=== PATIENT | female | born 1990 | race Caucasian/White ===

== ENCOUNTER 2017-10-28 02:12 | Emergency (ER) | payer SELFPAY ==
[~2017-10-28] VITALS: Ht 165.1 cm; Wt 114.5 kg
[2017-10-28 02:19] VITALS: TEMP 99.3
[2017-10-28 02:49] LABS: COLLECTION METHOD CLEAN CATCH
[2017-10-28 02:55] LABS: BASO % 0.2 % (0.0-2.0); EOS % 0.4 % (0-4.0); GRAN # 6.6 (1.4-6.5); GRAN % 69.7 % (42.2-75.2); HEMATOCRIT 37.7 % (37.0-47.0); HEMOGLOBIN 12.3 g/dl (12.5-16.0); LYMPH # 2.3 (1.2-3.4); LYMPH % 24.5 % (20.0-51.0); MEAN CELL VOLUME 88 fl (80.0-100.0); MEAN CORPUSCULAR HEMOGLOBIN 29 pg (27.0-31.0); MEAN CORPUSCULAR HGB CONC 33 g/dl (33.0-37.0); MEAN PLATELET VOLUME 11.3 fl (7.4-10.4); MONO # 0.5 (0.1-0.6); MONO % 4.9 % (1.7-9.3); PLATELET COUNT 232 K/mm3 (130-400); RED BLOOD COUNT 4.27 M/mm3 (4.10-5.30); REDCELL DISTRIBUTION WIDTH-CV 13.2 % (11.5-14.5)
[2017-10-28 02:57] LABS: MUCOUS Present /lpf; PH 5 (5-8); URINE APPEARANCE Cloudy; URINE BACTERIA Many /hpf; URINE BILIRUBIN Negative (NEGATIVE); URINE BLOOD Negative (NEGATIVE); URINE COLOR Yellow; URINE GLUCOSE Negative (NEGATIVE); URINE KETONE Negative (NEGATIVE); URINE LEUKOCYTE ESTERASE Negative (NEGATIVE); URINE NITRATE Negative (NEGATIVE); URINE PROTEIN(semi-quant) Negative (NEGATIVE); URINE UROBILINOGEN Negative (NEGATIVE)
[2017-10-28 03:03] LABS: ALBUMIN 4.3 gm/dL (3.5-5.0); BILIRUBIN,TOTAL 0.4 mg/dL (0.0-1.0); C-REACTIVE PROTEIN 1.1 mg/dL (0.0-0.9); CREATININE, serum 0.51 mg/dL (0.52-1.25); POTASSIUM 3.3 mmol/L (3.4-5.0); TOTAL PROTEIN 8.2 gm/dL (6.4-8.2)
[2017-10-28] MEDS ORDERED: TENORETIC 50 501 TAB PO (03:05)
[2017-10-28] MEDS ORDERED: LIPITOR20 MG PO (03:05)
[2017-10-28] MEDS ORDERED: ZYLOPRIM 300MG300 MG PO (03:05)
[2017-10-28 03:29] LABS: COLLECTION METHOD CATHETER
[2017-10-28 03:33] VITALS: BP 136/89
[2017-10-28 03:36] LABS: MUCOUS Present /lpf; PH 5 (5-8); SQUAMOUS EPITHELIAL 0-2 /hpf; URINE APPEARANCE Hazy; URINE BACTERIA None Seen /hpf; URINE BILIRUBIN Negative (NEGATIVE); URINE BLOOD Negative (NEGATIVE); URINE COLOR Yellow; URINE GLUCOSE Negative (NEGATIVE); URINE KETONE Negative (NEGATIVE); URINE LEUKOCYTE ESTERASE Negative (NEGATIVE); URINE NITRATE Negative (NEGATIVE); URINE PROTEIN(semi-quant) Negative (NEGATIVE); URINE UROBILINOGEN Negative (NEGATIVE)
[2017-10-28] MEDS ORDERED: NORCO 325 MG-51 TAB PO (03:54)
[2017-10-28] MEDS ORDERED: ZOFRAN 4MG T4 MG/TAB PO (03:54)
[2017-10-28 04:10] VITALS: PULSE 65
== END 2017-10-28 04:11 | disposition home or self-care (01) ==
LOC: COL.ER 02:12
PROVIDERS: Nurse Practitioner
DX: R10.11 Right upper quadrant pain (principal); I10 Essential (primary) hypertension; E78.5 Hyperlipidemia, unspecified; M10.9 Gout, unspecified; Z90.49 Acquired absence of other specified parts of digestive tract; Z88.0 Allergy status to penicillin
CPT/HCPCS: J1170; J2405; J7030

== ENCOUNTER → 2017-11-12 | Outpatient (CLI) | payer SELFPAY ==
[~2017-11-12] MED LIST: LIPITOR20 MG PO; NORCO 325 MG-51 TAB PO; TENORETIC 50 501 TAB PO; ZOFRAN 4MG T4 MG/TAB PO; ZYLOPRIM 300MG300 MG PO
== END ==
LOC: COL.RAD 07:48
DX: K80.20 Calculus of gallbladder without cholecystitis without obstruction (principal); K76.0 Fatty (change of) liver, not elsewhere classified

== ENCOUNTER 2017-12-06 04:47 | Observation (INO) | payer SELFPAY ==
[~2017-12-06] VITALS: Ht 167.6 cm; Wt 124.1 kg
[2017-12-06] VITALS (10 sets, daily range): BP systolic 134–177; BP diastolic 76–91; PULSE 70–96; TEMP 98–98.7
[2017-12-06 05:18] LABS: COLLECTION METHOD CLEAN CATCH
[2017-12-06 05:21] LABS: BASO % 0.4 % (0.0-2.0); EOS # 0.1 (0.0-0.7); EOS % 1.2 % (0-4.0); GRAN # 3.9 (1.4-6.5); GRAN % 50.5 % (42.2-75.2); HEMATOCRIT 42.6 % (37.0-47.0); LYMPH # 3.2 (1.2-3.4); LYMPH % 41.1 % (20.0-51.0); MEAN CELL VOLUME 89 fl (80.0-100.0); MEAN CORPUSCULAR HEMOGLOBIN 29 pg (27.0-31.0); MEAN CORPUSCULAR HGB CONC 33 g/dl (33.0-37.0); MEAN PLATELET VOLUME 11.4 fl (7.4-10.4); MONO # 0.5 (0.1-0.6); MONO % 6.5 % (1.7-9.3); PLATELET COUNT 230 K/mm3 (130-400); RED BLOOD COUNT 4.78 M/mm3 (4.10-5.30); REDCELL DISTRIBUTION WIDTH-CV 13.2 % (11.5-14.5)
[2017-12-06 05:30] LABS: PH 5 (5-8); URINE APPEARANCE Clear; URINE BACTERIA Rare /hpf; URINE BILIRUBIN Negative (NEGATIVE); URINE BLOOD 1+ (NEGATIVE); URINE COLOR Yellow; URINE GLUCOSE Negative (NEGATIVE); URINE KETONE Negative (NEGATIVE); URINE LEUKOCYTE ESTERASE Negative (NEGATIVE); URINE NITRATE Negative (NEGATIVE); URINE PROTEIN(semi-quant) Negative (NEGATIVE); URINE UROBILINOGEN Negative (NEGATIVE)
[2017-12-06 05:37] LABS: ALBUMIN 4.3 gm/dL (3.5-5.0); BILIRUBIN,TOTAL 0.2 mg/dL (0.0-1.0); CALCIUM 9.1 mg/dL (8.4-10.2); CREATININE, serum 0.49 mg/dL (0.52-1.25); POTASSIUM 3.5 mmol/L (3.4-5.0); TOTAL PROTEIN 8.4 gm/dL (6.4-8.2)
[2017-12-06] MEDS ORDERED: TENORMIN 5050 MG/TAB PO (07:31)
[2017-12-07 00:24] VITALS: BP 115/63; PULSE 72; TEMP 98.3
[2017-12-07 04:09] VITALS: BP 109/60; PULSE 64; TEMP 98.1
[2017-12-07 07:43] VITALS: BP 114/66; PULSE 63; TEMP 98.4
[2017-12-07] MEDS ORDERED: NORCO 325 MG-7.1 TAB PO (09:18)
== END 2017-12-07 10:04 | disposition home or self-care (01) ==
LOC: COL.ER 04:47 → SURG 07:05
PROVIDERS: Emergency Medicine
DX: K80.12 Calculus of gallbladder with acute and chronic cholecystitis without obstruction (principal); I10 Essential (primary) hypertension; Z88.0 Allergy status to penicillin
CPT/HCPCS: G0378; J1100; J1170; J1885; J1956; J2405; J2704; J2710; J3010; J7030; J7120

== ENCOUNTER 2018-05-07 20:59 | Emergency (ER) | payer OTHER ==
[~2018-05-07 20:59] MED LIST changes: +NORCO 325 MG-7.1 TAB PO; +TENORMIN 5050 MG/TAB PO
[2018-05-07 21:03] VITALS: TEMP 98.9
[2018-05-07 22:00] VITALS: PULSE 97
[2018-05-07 22:15] VITALS: BP 171/104
== END 2018-05-07 22:15 | disposition home or self-care (01) ==
LOC: COL.ER 20:59
DX: S63.502A Unspecified sprain of left wrist, initial encounter (principal); I10 Essential (primary) hypertension; Z90.89 Acquired absence of other organs; Z88.0 Allergy status to penicillin; V49.50XA Passenger injured in collision with unspecified motor vehicles in traffic accident, initial encounter; Y92.410 Unspecified street and highway as the place of occurrence of the external cause
CPT/HCPCS: Q4021